=== PATIENT | male | born 1960 | race Caucasian/White ===

== ENCOUNTER 2019-04-19 07:00 | Day surgery (SDC) | payer BC ==
[2019-04-18 16:57] VITALS: BMI 31.1
[2019-04-19] MEDS ORDERED: EPINEPHrine 0.3 MG in Ophthalmic Irrigation Solution 500 ML IVP SCH (07:45)
[2019-04-19] MEDS ORDERED: Cyclopentolate 1% Opth Drop 2 ML BOT ONE (07:46)
[2019-04-19] MEDS ORDERED: Phenylephrine 2.5% Ophth Soln 5 ML BOT ONE (07:46)
[2019-04-19] MEDS ORDERED: Ondansetron PF 4 MG/2 ML Vial ONE ×2 (08:41→10:00)
[2019-04-19] MEDS ORDERED: Propofol 1,000 MG/100 ML VIAL IV ONE (08:41)
[2019-04-19] MEDS ORDERED: Famotidine/PF 20 mg/2ml Vial ONE (08:41)
[2019-04-19] MEDS ORDERED: PROPOFOL 20 ML ONE (08:41)
[2019-04-19] MEDS ORDERED: Midazolam HCl 2 mg/2 ml Vial ONE (08:41)
[2019-04-19] MEDS ORDERED: Fentanyl 100 MCG/2 ML VIAL ONE (08:41)
[2019-04-19] MEDS ORDERED: CEFAZOLIN 1 GM VIAL ONE (10:00)
[2019-04-19] MEDS ORDERED: Lidocaine 4% PF 5 ML AMP ONE (10:00)
[2019-04-19] MEDS ORDERED: Lidocaine 1% PF 5 ML VIAL ONE ×2 (10:00)
[2019-04-19] MEDS ORDERED: Bupivacaine PF 0.75% SDV 10 ML ONE (10:00)
[2019-04-19] MEDS ORDERED: PROPOFOL 200 MG/20 ML VIAL ONE (10:00)
[2019-04-19] MEDS ORDERED: Triamcinolone 40 MG/ML VIAL ONE (10:00)
[2019-04-19] MEDS ORDERED: Metoclopramide HCl 10 MG/2 ML VIAL ONE (10:00)
[2019-04-19] MEDS ORDERED: Tobramycin/Dexamethasone Ophth Oint 3.5 GM TUBE ONE (10:00)
--- NOTE | 2019-04-19 10:50 | OP ---
DATE OF PROCEDURE: 04/19/2019 PREOPERATIVE DIAGNOSES: Tractional retinal detachment and vitreous hemorrhage, left eye. POSTOPERATIVE DIAGNOSES: Tractional retinal detachment and vitreous hemorrhage, left eye. PROCEDURES PERFORMED: Pars plana vitrectomy and tractional retinal detachment repair, left eye. ANESTHESIA: General endotracheal anesthesia. COMPLICATIONS: None. PROCEDURE IN DETAIL: The patient was identified in the preoperative holding area. Appropriate informed consent for the planned surgical procedure on the left eye had been obtained. The patient was transported to the operative suite. Appropriate cardiopulmonary monitoring was established. Local anesthesia was obtained using retrobulbar modified Van Lint lid block using 50:50 mixture of 4% lidocaine and 0.75% bupivacaine. The patient was prepped and draped in usual sterile manner for ophthalmic surgery, left eye. Lid speculum was placed in the left eye. A 25-gauge trocar was placed in conjunctiva and sclera superotemporally, inferotemporally, and supranasally. Infusion line was placed inferotemporally. Light pipe vitreous cutter was inserted into the eye. Core vitrectomy was performed. Posterior hyaloid face was peeled from the retinal periphery to the center using vacuum suction. Multiple areas of tractional detachment were identified. These were carefully dissected away from the retina without formation of a retinal hole proliferans on the temporal aspect also was carefully dissected away. Panretinal photocoagulation was placed on nonmacular areas of the retina. Areas of hemorrhaging were treated with the endophotocoagulation. No further bleeding was identified. Trocars were removed. The eye was noted to retain pressure well. Retrobulbar Kenalog and sequential Ancef were placed. Antibiotic ointment was placed. The eye was patched and shielded. The patient was taken to postoperative recovery unit in good condition having suffered no immediate perioperative complications. The patient was instructed to keep patch and shield on, avoid lifting or bending. Followup appointment with Dr. Holder. Job ID: [id number]
--- NOTE | 2019-04-19 20:38 | EKG ---
Test Reason : PREOP Blood Pressure : / mmHG Vent. Rate : 059 BPM Atrial Rate : 059 BPM P-R Int : 176 ms QRS Dur : 108 ms QT Int : 478 ms P-R-T Axes : 041 -29 150 degrees QTc Int : 473 ms Sinus bradycardia Prolonged QT Abnormal ECG No previous ECGs available Confirmed by DR. Chester ROY MD ([id number]) on 04/19/2019 8:37:42 PM Referred By: MAYNOR Confirmed By:DR. Chester ROY MD
== END 2019-04-19 12:20 | disposition home or self-care (01) ==
LOC: SDC 07:00
PROVIDERS: ATTEND Ophthalmology Retina Specialist
PROC: 08B53ZZ Excision of Left Vitreous, Percutaneous Approach (ICD-10-PCS; principal; 2019-04-19)
PROC: 08QF3ZZ Repair Left Retina, Percutaneous Approach (ICD-10-PCS; principal; 2019-04-19)
DX: H33.42 Traction detachment of retina, left eye (principal); H43.12 Vitreous hemorrhage, left eye; Z79.4 Long term (current) use of insulin; Z79.899 Other long term (current) drug therapy; Z88.1 Allergy status to other antibiotic agents
CPT/HCPCS: 36416; 93005; 93010; J0171; J2250; J2405; J2704; J3010; S0028